=== PATIENT | female | born 1995 | race African-American/Black ===

== ENCOUNTER 2017-09-12 07:37 | Emergency (ER) | payer OTHER, BC ==
[2017-09-12 07:47] VITALS: BP 141/85; PULSE 80; TEMP 98.6; BMI 27.3
--- NOTE | 2017-09-12 09:12 | PDOC ---
History of Present Illness - General Chief Complaint: Injury Stated Complaint: R ANKLE PAIN S/P FALL Time Seen by Provider: 09/12/17 08:09 History Source: Patient Exam Limitations: No Limitations - History of Present Illness Initial Comments: 09/12/17 09:08 CHIEF COMPLAINT: Twisted right ankle and foot HISTORY OF PRESENT ILLNESS: This is a 21-year-old female, no significant medical history currently on no medication presents after falling down 2 steps twisting right ankle and foot now with pain to right lateral ankle. There is no deformity, patient ambulating without difficulty. Patient denies LOC, PMH: [None] MEDS:[ None] ALLERGIES: [None] PCP: [None] REVIEW OF SYSTEMS: GENERAL/CONSTITUTIONAL: Awake alert and oriented HEAD, EYES, EARS, NOSE AND THROAT: No change in vision. No facial edema, no bruising. NO active bleeding. Nares intact. RESPIRATORY: No cough, wheezing, or hemoptysis. CARDIAC: Denies chest pain, no shortness of breathe. MUSCULOSKELETAL: No spinal point tenderness, Good ROM to all four extremeties. NO CVA tenderness. [] lateral neck pain. GI/: Denies abdominal pain, no nausea or vomiting, no bloody stool, no Hematuria. SKIN : No erythema or bruising noted. No abrasion or lacerations. NEUROLOGIC: No loss of consciousness, no numbness or tingling. PHYSICAL EXAM: GENERAL: Awake and alert and oriented x3. EYES: The pupils are equal, round, and reactive to light, with clear, conjunctiva. Good extraocular movement. No nystagmus NOSE: No nasal trauma . Midface stable MOUTH: Teeth intact. EARS: The ear canals and tympanic membranes are normal without trauma. No drainage. NECK: No Lower cervical C-spine tenderness, no pain with chin to chest. CHEST: The lungs are clear without crackles, or wheezes. No subcutaneous emphysema. No crepitus. HEART: Heart is regular rhythm, with normal S1 and S2, no murmurs. ABDOMEN: The abdomen is soft and nontender with normal bowel sounds. There is no guarding or rebound. MUSCULOSKELETAL: No spinal point tenderness. No bruising or erythema. Pelvis stable. Right lateral ankle with pain and mild lateral edema, no erythema or bruising. EXTREMITIES: Edema to right lateral ankle no bruising. No visible traumatic injury. SKIN: Edema to right lateral ankle, no erythema or bruising. No abrasions or lacerations. 09/12/17 10:14 Past History - Past Medical History Allergies/Adverse Reactions: Allergies Allergy/AdvReac Type Severity Reaction Status Date / Time No Known Allergies Allergy Verified 09/12/17 07:39 Home Medications: Ambulatory Orders NK [No Known Home Medication] 09/12/17 COPD: No - Immunization History Immunization Up to Date: No - Suicide/Smoking/Psychosocial Hx Smoking Status: Yes Smoking History: Never smoked Number of Cigarettes Smoked Daily: 2 Hx Alcohol Use: Yes (SOCIAL) Drug/Substance Use Hx: No Substance Use Type: None *Physical Exam - Vital Signs Last Vital Signs Temp Pulse Resp BP Pulse Ox 98.6 F 80 18 141/85 100 09/12/17 07:39 09/12/17 07:39 09/12/17 07:39 09/12/17 07:39 09/12/17 07:39 ED Treatment Course - ADDITIONAL ORDERS Additional order review: Laboratory Results 09/12/17 08:00 Urine HCG, Qual Negative - RADIOLOGY Radiology Studies Ordered: Category Date Time Status ANKLE & FOOT-RIGHT* [RAD] Stat Radiology 09/12/17 08:37 Taken Medical Decision Making - Medical Decision Making 09/12/17 10:15 A/P: Patient here for evaluation of injury to right ankle and foot, sent x-ray wet read is negative for acute fracture dislocation, Ray wrap placed on, patient to be discharged on Motrin for pain, ice and elevate when at rest the pain persists one week follow-up with orthopedics. *DC/Admit/Observation/Transfer Diagnosis at time of Disposition: Right ankle injury Qualifiers: Encounter type: initial encounter Qualified Code(s): S99.911A - Unspecified injury of right ankle, initial encounter - Discharge Dispostion Disposition: HOME Condition at time of disposition: Stable Admit: No - Referrals Referrals: Jacquelyn Hernandez MD [Primary Care Provider] - - Patient Instructions Additional Instructions: Keep Ray wrap on for comfort, follow-up with orthopedics in one week if pain persist Motrin as needed for pain. - Post Discharge Activity Forms/Work/School Notes: Back to Work
== END 2017-09-12 09:29 | disposition home or self-care (01) ==
LOC: JERFT 07:37 → JER 07:37 → JERFT 09:29
DX: S99.811A Other specified injuries of right ankle, initial encounter (principal); W10.8XXA Fall (on) (from) other stairs and steps, initial encounter; Y93.H3 Activity, building and construction; Y92.69 Other specified industrial and construction area as the place of occurrence of the external cause; Y99.0 Civilian activity done for income or pay
CPT/HCPCS: 73610-TC-RT-FY; 73630-TC-RT-FY; 84703; 99281-25

== ENCOUNTER 2018-05-28 22:27 | Emergency (ER) | payer BC ==
[2018-05-28 22:35] VITALS: BP 117/80; PULSE 98; TEMP 99.2; BMI 27.3
--- NOTE | 2018-05-28 23:04 | PDOC ---
History of Present Illness - General Chief Complaint: Sore Throat Stated Complaint: THROAT PAIN Time Seen by Provider: 05/28/18 23:03 - History of Present Illness Initial Comments: 05/28/18 23:27 The patient is a 22 year old female with no significant PMH who presents for evaluation of sore throat. The patient reports a 2 day history of sore throat prompting her presentation to the ED for further evaluation. She reports some relief with ibuprofen and otherwise denies fevers, chills, SOB, chest pain, difficulty swallowing, nausea, vomiting, abdominal pain, or changes with urination or bowel movements. Past History - Past Medical History Allergies/Adverse Reactions: Allergies Allergy/AdvReac Type Severity Reaction Status Date / Time No Known Allergies Allergy Verified 05/28/18 22:32 Home Medications: Ambulatory Orders NK [No Known Home Medication] 09/12/17 COPD: No - Immunization History Immunization Up to Date: Yes - Suicide/Smoking/Psychosocial Hx Smoking Status: Yes Smoking History: Never smoked Number of Cigarettes Smoked Daily: 2 Information on smoking cessation initiated: No Hx Alcohol Use: Yes (SOCIAL) Drug/Substance Use Hx: No Substance Use Type: None Review of Systems - Review of Systems Comments:: 05/28/18 23:30 Constitutional: No fevers, chills, fatigue, malaise HEENT: Sore Throat. No Rhinorrhea, nasal congestion, visual changes Cardiovascular: No chest pain, syncope, palpitations, lightheadedness Respiratory: No Cough, SOB, Hemoptysis, Gastrointestinal: No Abdominal pain, Nausea, Vomiting, Constipation, Diarrhea, Melena Genitourinary: No Dysuria, Frequency, Urgency, Hesitancy, Hematuria, Flank pain Musculoskeletal: No Myalgia, arthralgia Skin: No rashes, itching, bruising, pallor Neurologic: No Headache, Dizziness, Numbness, Weakness, or Tingling Psychiatric: No Hallucinations. No SI or HI *Physical Exam - Vital Signs Last Vital Signs Temp Pulse Resp BP Pulse Ox 99.2 F 98 H 18 117/80 100 05/28/18 22:32 05/28/18 22:32 05/28/18 22:32 05/28/18 22:32 05/28/18 22:32 - Physical Exam Comments: 05/28/18 23:30 General Appearance: Nourished. No Apparent Distress HEENT: Tonsillar Exudate, Tonsillar Erythema. Uvula is midline. No Pharyngeal Erythema, Neck: No Cervical Lymphadenopathy Respiratory/Chest: Lungs Clear, Normal Breath Sounds. No Crackles, Rales, Rhonchi, Wheezing Cardiovascular: Regular Rhythm, Regular Rate. No Murmur, Gallops, Rubs Gastrointestinal/Abdominal: Normal Bowel Sounds, Soft. No Guarding, Rebound, Tenderness Musculoskeletal: No CVA Tenderness Extremity: Normal Capillary Refill Integumentary: Normal Color, Dry, Warm Neurologic: Fully Oriented, Alert, Normal Mood/Affect, Normal Response, Medical Decision Making - Medical Decision Making 05/28/18 23:32 The patient is a 22 year old female with no significant PMH who presents for evaluation of sore throat. Given the patient's history and physical exam, we will obtain a rapid strep to evaluate further. We will continue to monitor and reassess while here in the ED. 05/28/18 23:52 Rapid strep is positive. We will treat the patient with Penicillin IM. We are comfortable discharging the patient home with primary care provider follow up. We discussed the results, plan, and return precautions with the patient who voiced understanding and is agreeable with the plan. *DC/Admit/Observation/Transfer Diagnosis at time of Disposition: Strep pharyngitis - Discharge Dispostion Disposition: HOME Condition at time of disposition: Stable Decision to Admit order: No - Referrals - Patient Instructions Printed Discharge Instructions: DI for Strep Throat Additional Instructions: Please return to the ER if you experience concerning or worsening symptoms including worsening difficulty breathing, fevers, or chest pain. Your lab results show that you have strept throat here in the ER. You received an antibiotic shot here in the ED. Please call to schedule a follow up appointment with your primary care provider within 2-3 days to discuss your ER visit and further management of your symptoms. - Post Discharge Activity Forms/Work/School Notes: Back to Work
[2018-05-28] MEDS ORDERED: PENICILLIN G BENZATHINE 1,200,000 UNIT/2 ML PFS IM ONE (23:45)
--- NOTE | 2018-05-28 23:53 | PDOC ---
Attending Attestation - Resident Resident Name: Tony Lovelace - ED Attending Attestation I have performed the following: I have examined & evaluated the patient, The case was reviewed & discussed with the resident, I agree w/resident's findings & plan, Exceptions are as noted - HPI HPI: 05/28/18 23:49 The patient is a 22 year old female, with no significant past medical history, who presents to the emergency department with, 2 days of a sore throat. Patient notes taking Ibuprofen, with minimal relief prompting her visit to the ED. She denies recent fevers, cough, chills, headache or dizziness. She denies recent nausea, vomit, diarrhea or constipation. She denies recent dysuria, frequency, urgency or hematuria. She denies recent chest pain or shortness of breath. Allergies: NKDA Past surgical history: None reported. Social history: Smoker (2 cigarettes per day). Social alcohol usage. - Physicial Exam PE: 05/28/18 23:50 "GENERAL: Awake, alert, and fully oriented, in no acute distress EYES: Sclera anicteric, conjunctiva clear +ENT: Bilateral tonsillar exudates, no petechie, no masses, uvula midline, nares patent. Moist mucosa NECK: +L shotty tender ant cervical LAD LUNGS: Breath sounds equal, clear to auscultation bilaterally. No wheezes, and no crackles HEART: Regular rate and rhythm, normal S1 and S2, no murmurs, rubs or gallops ABDOMEN: Soft, nontender, normoactive bowel sounds. No guarding, no rebound. No masses EXTREMITIES: Normal range of motion, WWP NEUROLOGICAL: Normal speech, cranial nerves intact, 5/5 strength in all 4 extremities, normal sensation to light touch in all 4 extremities, normal gait SKIN: Warm, Dry, normal turgor, no rashes or lesions noted. - Medical Decision Making 05/28/18 23:52 strep + Pt elects to have 1 time dose of IM PCN instead of amox Pt non toxic, well appearing, tolerating secretions and PO REquests work note I discussed the physical exam findings, ancillary test results and final diagnoses with the patient. I answered all of the patient's questions. The patient was satisfied with the care received and felt comfortable with the discharge plan and treatment plan. The patient will call their primary care physician within 24 hours to arrange follow-up and will return to the Emergency Department with any new, persistent or worsening symptoms.
[2018-05-29] MEDS ORDERED: PENICILLIN G BENZATHINE 2,400,000 UNIT/4 ML PFS ONE
== END 2018-05-29 00:09 | disposition home or self-care (01) ==
LOC: JER 22:27
DX: J02.0 Streptococcal pharyngitis (principal); B95.0 Streptococcus, group A, as the cause of diseases classified elsewhere
CPT/HCPCS: 87070; 87077; 87430; 99282-25

== ENCOUNTER 2020-03-07 01:44 | Emergency (ER) | payer BC, OTHER ==
[2020-03-07 02:08] VITALS: BMI 29.2
--- NOTE | 2020-03-07 02:12 | PDOC ---
History of Present Illness <Linda Ann - Last Filed: 03/07/20 03:56> - General History Source: Patient Exam Limitations: No Limitations - History of Present Illness Initial Comments: 24 y/o female presenting to [facility] ER complaining of bleeding laceration to left middle finger. Reports she sustained the wound while cutting potatoes at home around 7PM. Bleeding stopped with mild pressure but continued after the bandage was removed. Denies difficulty moving the digit or loss of sensation. Last tetanus booster either 1-2 years ago. <Tripp Russell - Last Filed: 03/07/20 04:26> - General Chief Complaint: Laceration Stated Complaint: FINGER LACERATION Time Seen by Provider: 03/07/20 02:12 Past History <Linda Ann - Last Filed: 03/07/20 03:56> - Medical History COPD: No Other medical history: Pt denies past medical history - Immunization History Immunization Up to Date: Yes - Psycho-Social/Smoking History Smoking Status: Yes Smoking History: Never smoked Have you smoked in the past 12 months: No Number of Cigarettes Smoked Daily: 2 Information on smoking cessation initiated: No - Substance Abuse Hx (Audit-C & DAST Scrn) How often the patient has a drink containing alcohol: Never Score: In Men: 4 or > Positive; In Women: 3 or > Positive: 0 Screen Result (Pos requires Nsg. Audit-10AR): Negative In the last yr the pt used illegal drug/Rx for NonMed reason: No Score: Yes response is considered Positive: 0 Screen Result (Positive result requires Nsg. DAST-10): Negative <Tripp Russell - Last Filed: 03/07/20 04:26> - Medical History Allergies/Adverse Reactions: Allergies Allergy/AdvReac Type Severity Reaction Status Date / Time No Known Allergies Allergy Verified 03/07/20 02:06 Home Medications: Ambulatory Orders NK [No Known Home Medication] 09/12/17 Review of Systems - Review of Systems Able to Perform ROS?: Yes Is the patient limited Fijian proficient: No Musculoskeletal: No: Joint Swelling, Muscle Weakness Neurological: No: Numbness Hematologic/Lymphatic: No: Easy Bleeding <Tripp Russell - Last Filed: 03/07/20 04:26> *Physical Exam - Vital Signs Last Vital Signs Temp Pulse Resp BP Pulse Ox 98.2 F 89 20 133/88 99 03/07/20 02:06 03/07/20 02:06 03/07/20 02:06 03/07/20 02:06 03/07/20 02:06 <Linda Ann - Last Filed: 03/07/20 03:56> - Vital Signs Last Vital Signs Temp Pulse Resp BP Pulse Ox 98.2 F 89 20 133/88 99 03/07/20 02:06 03/07/20 02:06 03/07/20 02:06 03/07/20 02:06 03/07/20 02:06 - Physical Exam General Appearance: Yes: Appropriately Dressed. No: Apparent Distress, Disheveled, Alcohol on Breath, Intoxicated HEENT: positive: Normal Voice Neck: positive: Trachea midline, Supple Respiratory/Chest: positive: Other (Speaking in multi-word responses without pausing.). negative: Respiratory Distress Cardiovascular: positive: Regular Rate Extremity: positive: Other (Approx. 3mm curved laceration to lateral aspect of 3rd digit on left hand. Slow oozing blood when pressure is removed. Able to flex and extend from the PIP and DIP joints. Intact sensation to distal tip.) Integumentary: positive: Normal Color, Dry, Warm Neurologic: positive: Fully Oriented, Alert, Normal Mood/Affect <Tripp Russell - Last Filed: 03/07/20 04:26> Procedures - Laceration/Wound Repair Left Hand 3rd digit Wound Length: to 2.5 cm Wound Explored: clean, no foreign body present Wound's Depth, Shape: superficial, flap Irrigated w/ Saline: Yes Betadine Prep: No Anesthesia: 1% Lidocaine Amount of Anesthetic (ccs): 5 Wound Repaired With: Sutures Suture Size/Type: 6:0 Number of Sutures: 3 Splint Applied: No Sling Applied: No <Linda Ann - Last Filed: 03/07/20 03:56> Medical Decision Making - Medical Decision Making 24 y/o female presenting with laceration to left middle finger. Laceration irrigated then closed with good approximation and hemostasis. Tetanus shot and/or abx prophylaxis not indicated. Pt instructed to f/u with PCP or return to ED for wound check/suture removal at 7 days. Given PO Tylenol for pain relief. Case discussed with ED Attending Dr. Abbott. Tripp Russell M.D., PGY3 Emergency Medicine Resident <Tripp Russell - Last Filed: 03/07/20 04:26> Discharge <SethRadhaingrid - Last Filed: 03/07/20 03:56> - Discharge Information Problems reviewed: Yes - Admission No <Tripp Russell - Last Filed: 03/07/20 04:26> - Discharge Information Clinical Impression/Diagnosis: Finger laceration Qualifiers: Encounter type: initial encounter Finger: middle finger Damage to nail status: without damage Foreign body presence: without foreign body Laterality: left Qualified Code(s): S61.213A - Laceration without foreign body of left middle finger without damage to nail, initial encounter Condition: Good Disposition: HOME - Follow up/Referral Referrals: Sheila Webster NP [Primary Care Provider] - - Patient Discharge Instructions Patient Printed Discharge Instructions: DI for Laceration Repair Additional Instructions: You were seen today for a cut on your left middle finger. The bleeding was controlled with three stitches. The stitches will need to come out in the next 7-10 days. You can either make an appointment with your primary care doctor or return to the ED to have them removed. They HAVE TO BE REMOVED. They will not dissolve. I have included a packet with further instructions on caring for the wound. You can take over the counter Tylenol or Advil as needed for pain. Take as directed on the package insert. Do not exceed the recommended dosage. Go to the nearest emergency department if your condition worsens or you feel like you need additional emergency evaluation. Watch for further bleeding, worsening pain, worsening redness, or other signs of infection. Print Language: SRI LANKAN - Post Discharge Activity Work/Back to School Note: Back to Work
[2020-03-07] MEDS ORDERED: ACETAMINOPHEN 325 MG TABLET (FP) PO ONE (03:14)
--- NOTE | 2020-03-07 03:24 | PDOC ---
Attending Attestation - Resident Resident Name: Tripp Russell - ED Attending Attestation I have performed the following: I have examined & evaluated the patient, The case was reviewed & discussed with the resident, I agree w/resident's findings & plan, Exceptions are as noted - HPI HPI: 03/07/20 03:23 24-year-old female here with a laceration to her left middle finger states she cut it with a knife earlier this evening around 7 PM. Has been bleeding extensively so she came in for stitches states she had a tetanus done last year no new numbness tingling or weakness in that finger - Physicial Exam PE: 03/07/20 03:23 Awake alert no acute distress head is atraumatic lungs are clear bilaterally heart is regular 30 murmurs rubs or gallops extremity exam demonstrates a left middle finger with a small 3 mm laceration punctate there is active bleeding the tendons appear to be intact with full flexion extension at all PIP and DIP joints - Medical Decision Making 03/07/20 03:24 Laceration was repaired by Dr. Russell and Dr. Dinseh Park told to return in 7 to 10 days for suture removal DC to home Discharge - Discharge Information Problems reviewed: Yes Clinical Impression/Diagnosis: Finger laceration Qualifiers: Encounter type: initial encounter Finger: middle finger Damage to nail status: without damage Foreign body presence: without foreign body Laterality: left Qualified Code(s): S61.213A - Laceration without foreign body of left middle finger without damage to nail, initial encounter Condition: Good Disposition: HOME - Follow up/Referral Referrals: Sheila eWbster NP [Primary Care Provider] - - Patient Discharge Instructions Patient Printed Discharge Instructions: DI for Laceration Repair Additional Instructions: You were seen today for a cut on your left middle finger. The bleeding was controlled with three stitches. The stitches will need to come out in the next 7-10 days. You can either make an appointment with your primary care doctor or return to the ED to have them removed. They HAVE TO BE REMOVED. They will not dissolve. I have included a packet with further instructions on caring for the wound. You can take over the counter Tylenol or Advil as needed for pain. Take as directed on the package insert. Do not exceed the recommended dosage. Go to the nearest emergency department if your condition worsens or you feel like you need additional emergency evaluation. Watch for further bleeding, worsening pain, worsening redness, or other signs of infection. Print Language: NEPALI - Post Discharge Activity Work/Back to School Note: Back to Work
[2020-03-07] MEDS ORDERED: ACETAMINOPHEN 325 MG TABLET (FP) ONE (03:26)
[2020-03-07 04:13] VITALS: BP 127/87; PULSE 78; TEMP 97.1
== END 2020-03-07 03:45 | disposition home or self-care (01) ==
LOC: JER 01:44
PROC: 0HQGXZZ Repair Left Hand Skin, External Approach (ICD-10-PCS; principal; 2020-03-07)
DX: S61.213A Laceration without foreign body of left middle finger without damage to nail, initial encounter (principal)
CPT/HCPCS: 99284-25

== ENCOUNTER 2020-03-14 09:49 | Emergency (ER) | payer OTHER ==
[2020-03-14 09:55] VITALS: BP 128/76; PULSE 81; TEMP 98.2; BMI 29.2
--- NOTE | 2020-03-14 10:03 | PDOC ---
Suture Removal/Wound Check HPI - History of Present Illness Chief Complaint: Suture/Staple Removal(Here) Stated Complaint: REMOVAL OF STITCHES Time Seen by Provider: 03/14/20 09:56 History Source: Yes: Patient Exam Limitations: Yes: Clinical Condition Treated at: [facility] Date of Last ED visit: 03/07/20 - Previous ED Treatment Type of procedure performed on last visit: Yes: Laceration Repair Tetanus Immunization: Yes: Up to Date Past History - Medical History Allergies/Adverse Reactions: Allergies Allergy/AdvReac Type Severity Reaction Status Date / Time No Known Allergies Allergy Verified 03/14/20 09:52 Home Medications: Ambulatory Orders NK [No Known Home Medication] 09/12/17 COPD: No - Reproductive History Is Patient Now?: No - Immunization History Immunization Up to Date: Yes - Psycho-Social/Smoking History Smoking Status: Yes Smoking History: Unknown if ever smoked Have you smoked in the past 12 months: No Number of Cigarettes Smoked Daily: 2 - Substance Abuse Hx (Audit-C & DAST Scrn) In the last yr the pt used illegal drug/Rx for NonMed reason: No Score: Yes response is considered Positive: 0 Screen Result (Positive result requires Nsg. DAST-10): Negative Suture Removal/Wound Check PE - Physical Exam Laceration/Wound Check Symptoms: reports: None. denies: Pain, Fever, Chills, Redness, Numbness Current Severity Level: None Location of Laceration/Wound: left: Finger *Review of Systems - Review of Systems Able to Perform ROS?: Yes Constitutional: No: Fever, Malaise HEENTM: No: Symptoms Reported Respiratory: No: Symptoms reported Cardiac (ROS): No: Symptoms Reported Musculoskeletal: No: Symptoms Reported, See HPI, Muscle Pain Integumentary: Yes: Symptoms Reported, Other (Laceration to left middle finger was [address]) Neurological: No: Numbness, Paresthesia All Other Systems: Reviewed and Negative *Physical Exam - Vital Signs Last Vital Signs Temp Pulse Resp BP Pulse Ox 98.2 F 81 16 128/76 99 03/14/20 09:52 03/14/20 09:52 03/14/20 09:52 03/14/20 09:52 03/14/20 09:52 - Physical Exam General Appearance: Yes: Nourished, Appropriately Dressed. No: Apparent Distress HEENT: positive: Normal ENT Inspection Respiratory/Chest: negative: Respiratory Distress, Accessory Muscle Use Musculoskeletal: positive: Normal Inspection Extremity: positive: Normal Capillary Refill, Normal Inspection, Normal Range of Motion Integumentary: positive: Normal Color, Other (Well-healed 1 cm laceration to distal phalange of plantar aspect of left middle finger with [address] No skin erythema. No wound dehiscence or discharge from wound site. No evidence of wound infection) Neurologic: positive: Fully Oriented, Alert, Normal Mood/Affect, Normal Response Medical Decision Making - Medical Decision Making 03/14/20 10:05 Patient with no significant past medical history present for suture removal status post presenting a week ago with laceration to left middle finger status post accidentally cutting finger with a kitchen knife a week ago. Patient up-to-date on tetanus vaccine. Denies redness to wound site, numbness or tingling sensation to fingers or discharge from wound. Denies fevers or chills or any other symptoms. Exam significant for 1 cm laceration to the distal phalange of left middle finger with [address]. No evidence of wound infection or redness to wound site. Sutures removed with suture removal care without complication. Bacitracin applied to wound. Patient educated on continues home wound care. Patient stable for discharge with PCP follow-up Discharge - Discharge Information Problems reviewed: Yes Clinical Impression/Diagnosis: Encounter for removal of sutures Finger laceration Qualifiers: Encounter type: subsequent encounter Finger: middle finger Damage to nail status: without damage Foreign body presence: without foreign body Laterality: left Qualified Code(s): S61.213D - Laceration without foreign body of left middle finger without damage to nail, subsequent encounter Condition: Improved Disposition: HOME - Admission No - Follow up/Referral - Patient Discharge Instructions Patient Printed Discharge Instructions: DI for Suture Removal Additional Instructions: Continue using home Neosporin on wound twice a day until fully healed. Take Tylenol or Motrin as needed for pain. Follow-up with your primary care - Post Discharge Activity
== END 2020-03-14 10:19 | disposition home or self-care (01) ==
LOC: JERFT 09:49
DX: Z48.02 Encounter for removal of sutures (principal)
CPT/HCPCS: 99282-25

== ENCOUNTER 2022-02-12 08:13 | Emergency (ER) | payer OTHER ==
[2022-02-12 08:22] VITALS: BP 115/81; PULSE 73; TEMP 98.2; BMI 32.2
[2022-02-12] MEDS ORDERED: MAG HYDROX/AL HYDROX/SIMETH -MYLANTA- ORAL SUSPENSION PO ONE (09:05)
[2022-02-12] MEDS ORDERED: FAMOTIDINE 20 MG TABLET PO ONE (09:05)
[2022-02-12] MEDS ORDERED: FAMOTIDINE 20 MG TABLET ONE (09:13)
[2022-02-12] MEDS ORDERED: MAG HYDROX/AL HYDROX/SIMETH 30 ML UNIT-DOSE CUP ONE (09:13)
[2022-02-12 09:45] LABS: URINE APPEARANCE CLEAR; URINE BILIRUBIN NEGATIVE (NEGATIVE); URINE COLOR YELLOW; URINE GLUCOSE (UA) NEGATIVE (NEGATIVE); URINE KETONE NEGATIVE (NEGATIVE); URINE LEUK ESTERASE NEGATIVE (NEGATIVE); URINE NITRITE NEGATIVE (NEGATIVE); URINE PROTEIN NEGATIVE (NEGATIVE); URINE UROBILINOGEN 0.2 mg/dL (0.2-1.0)
[2022-02-12 09:48] LABS: HCG,QUALITATIVE URINE Negative
== END 2022-02-12 10:50 | disposition home or self-care (01) ==
LOC: JER 08:13
DX: R19.7 Diarrhea, unspecified (principal)
CPT/HCPCS: 81003; 84703; 87086; 99284-25; C9803-CS; U0003; U0005

== ENCOUNTER 2022-02-25 13:27 | Emergency (ER) | payer OTHER ==
[2022-02-25 13:51] VITALS: BP 127/79; PULSE 86; RESP 16; TEMP 98.1; BMI 33.2
== END 2022-02-25 14:32 | disposition home or self-care (01) ==
LOC: FER 13:27
DX: S63.632A Sprain of interphalangeal joint of right middle finger, initial encounter (principal); X50.0XXA Overexertion from strenuous movement or load, initial encounter
CPT/HCPCS: 73140-TC-RT-FY; 99283-25

== ENCOUNTER 2022-06-23 17:52 | Emergency (ER) | payer OTHER ==
[2022-06-23 18:09] VITALS: BP 130/87; PULSE 95; RESP 18; TEMP 98.1; BMI 29.2
[2022-06-23] MEDS ORDERED: IBUPROFEN 400 MG TABLET (FP) PO ONE ×2 (18:42→18:55)
[2022-06-23] MEDS ORDERED: DEXAMETHASONE SOD PHOSPHATE 10 MG/1 ML VIAL IM ONE (21:24)
[2022-06-23] MEDS ORDERED: DEXAMETHASONE SOD PHOSPHATE 10 MG/1 ML VIAL ONE (21:36)
== END 2022-06-23 22:18 | disposition home or self-care (01) ==
LOC: JER 17:52
PROC: 3E023GC Introduction of Other Therapeutic Substance into Muscle, Percutaneous Approach (ICD-10-PCS; principal; 2022-06-23)
DX: J11.1 Influenza due to unidentified influenza virus with other respiratory manifestations (principal)
CPT/HCPCS: 0241U-QW; 99284-25; J1100

== ENCOUNTER 2024-08-22 22:39 | Emergency (ER) | payer OTHER ==
[2024-08-22 22:45] VITALS: BP 151/87; PULSE 70; RESP 20; TEMP 97.7; BMI 33.2
[2024-08-23 01:11] LABS: BASO % 0.7 % (0-2.0); EOS % 1.2 % (0-4.5); HEMOGLOBIN 13.4 GM/dL (10.7-15.3); LYMPH % 50.6 % (8-40); MCH 25.6 pg (25.7-33.7); MCHC 32.6 g/dl (32.0-36.0); MEAN CELL VOLUME 78.7 fl (80-96); MEAN PLT VOLUME 7.6 fl (7.5-11.1); MONO % 8.5 % (3.8-10.2); PLATELET COUNT 392 10^3/uL (134-434); RBC 5.21 M/mm3 (3.60-5.2); RDW 13.9 % (11.6-15.6); WHITE BLOOD COUNT 8.5 K/mm3 (4.0-10.0)
[2024-08-23] MEDS ORDERED: CEFTRIAXONE 1 G/50 ML PREMIX 50 ML IVPB ONE (01:32)
[2024-08-23] MEDS ORDERED: metroNIDAZOLE 250 MG TABLET ONE (02:52)
[2024-08-23] MEDS: metroNIDAZOLE 250 MG TABLET PO ONE (02:54)
== END 2024-08-23 03:09 | disposition left against medical advice (07) ==
LOC: JER 22:39
DX: K81.0 Acute cholecystitis (principal); R11.2 Nausea with vomiting, unspecified; R10.11 Right upper quadrant pain; R19.7 Diarrhea, unspecified; R35.0 Frequency of micturition; T78.1XXA Other adverse food reactions, not elsewhere classified, initial encounter
CPT/HCPCS: 36415; 76705-TC; 80053; 81003; 83690; 83735; 84703; 85025; 85610; 85730; 87086; 93005; 93010; 99285-25